=== PATIENT | male | born 1975 | race Caucasian/White ===

== ENCOUNTER 2023-04-06 06:45 | Day surgery (SDC) | payer OTHER, SELFPAY ==
[2023-03-30 12:40] VITALS: BMI 34.5
--- NOTE | 2023-04-05 17:17 | P.PNAN_ITS ---
Anes - Initial Pre Proc Eval Procedure: Operation Date: 04/06/23 08:30 Proposed Procedures p Screening Colonoscopy - Logan Winston MD Date/Time: 04/05/23 17:17 Surgeon: Logan Winston MD Pre Op Diagnosis: Neoplasm Screening, Screen.Neoplasm of Rectum Patient Data Age: 47 Gender: M Height: 1.83 m Weight: 115.5 kg Allergies Allergy/AdvReac Type Severity Reaction Status Date / Time No Known Allergies Allergy Verified 04/06/23 07:00 Home Medications Medication Instructions Recorded Confirmed Type bupropion HCl 150 mg 24 hr tablet, 150 mg PO QAM #90 tabs 02/15/23 04/06/23 Rx extended release lisinopril 20 mg tablet 20 mg PO DAILY #30 tabs 02/15/23 04/06/23 Rx Patient hx anesthesia problems: none Family hx anesthesia problems: none Results Review: All pre-operative results and documents have been reviewed as part of the pre- operative evaluation. [facility] Past Medical History Medical History (Updated 04/05/23 @ 17:17 by Jorge Luis Zamora DO) Generalized anxiety disorder Hypertension KENY (obstructive sleep apnea) Surgical History Surgical History H/O vasectomy 2018 Hx of excision of mass neck 09/21/2018 Family History Family History Father No problems noted. Mother No problems noted. Social History Social History Smoking status: Unknown if ever smoked Tobacco type: cigarettes Alcohol intake: current Drinks per week: 5 Substance use: never Substance use type: does not use Lack of Transportation: No Lack of Food: Never True Current Housing: I Have Housing Concerned About Future Housing: No Difficulty Paying Gas/Electric Bills: No Difficulty Paying for Meds: No Currently Unemployed: No Education: Bachelor's Degree Difficulty w/ Childcare or Family Care: No Living arrangements: with family Occupation/Education: occupation Gender identity (if verbalized by the patient): Male Spiritual care concerns: No Anes - Eval Final PreProcedure Day of Procedure 04/05/23 17:17 Patient weight: obese Heart: regular rate and rhythm Lungs: clear to auscultation Airway: Mallampati scale class II Neurological: alert and oriented Last oral intake: >/= 8 hours ASA classification: III Emergent: no Anesthetic plan: proceed Anesthesia type and monitoring: general GIVS and standard monitoring Results Review: All pre-operative results and documents have been reviewed as part of the pre- operative evaluation. Informed Consent: The patient's anesthetic plan and its attendant risks and benefits were discussed with the patient/family/POA. Questions were solicited and answers provided to the satisfaction of the patient/family/POA.
[2023-04-06 07:10] VITALS: BP 141/102; PULSE 84; RESP 14; TEMP 36.8; O2SAT 98
[2023-04-06 07:12] VITALS: BMI 34.3
[2023-04-06] MEDS: LACTATED RINGERS 1,000 ML 150 ML IV CONT (07:32)
--- NOTE | 2023-04-06 07:35 | SUR.PREOP ---
Anesthesia aware of Pt's BP 141/102, no new orders at this time. HR 84, Pt denies HERRERA, dizziness, blurry vision, chest pain.
--- NOTE | 2023-04-06 08:15 | PM.HPGS ---
History of Present Illness History of Present Illness Consent: Risks, benefits, and alternatives have been discussed and questions answered. Patient agrees to proceed with procedure. Chief complaint: Neoplasm Screening, Screen.Neoplasm of Rectum Narrative: Kyler Harrington is a 47 year old male here for first screening colonoscopy Review of Systems Constitutional: Constitutional: Denies headache(s) and Denies weakness Eyes: Eyes: Denies blurry vision ENT: Reports Normal hearing present, Denies headache(s) and Denies neck pain Cardiovascular: Cardiovascular: Denies chest pain and Denies dyspnea Respiratory: Respiratory: Denies dyspnea Gastrointestinal: Gastrointestinal: Reports no additional gastrointestinal complaints Genitourinary: Genitourinary: Denies dysuria Musculoskeletal: Musculoskeletal: Denies neck pain Integumentary/Breasts: Skin/Breast: Denies dry skin Neurologic: Reports Normal hearing present, Denies headache(s) and Denies weakness Psychiatric: Psychiatric: Denies anxiety Endocrine: Endocrine: Denies change in body appearance Hematologic/Lymphatic: Hematologic/Lymphatic: Denies easy bleeding Allergic/Immunologic: Allergic/Immunologic: Denies urticaria PMFSH Past Medical History Medical History (Updated 04/05/23 @ 17:17 by Jorge Luis Zamora DO) Generalized anxiety disorder Hypertension KENY (obstructive sleep apnea) Surgical History Surgical History H/O vasectomy 2018 Hx of excision of mass neck 09/21/2018 Family History Family History Father No problems noted. Mother No problems noted. Social History Social History Smoking status: Unknown if ever smoked Tobacco type: cigarettes Alcohol intake: current Drinks per week: 5 Substance use: never Substance use type: does not use Lack of Transportation: No Lack of Food: Never True Current Housing: I Have Housing Concerned About Future Housing: No Difficulty Paying Gas/Electric Bills: No Difficulty Paying for Meds: No Currently Unemployed: No Education: Bachelor's Degree Difficulty w/ Childcare or Family Care: No Living arrangements: with family Occupation/Education: occupation Gender identity (if verbalized by the patient): Male Spiritual care concerns: No Meds Home Medications and Allergies Home Medications Medication Instructions Recorded Confirmed Type bupropion HCl 150 mg 24 hr tablet, 150 mg PO QAM #90 tabs 02/15/23 04/06/23 Rx extended release lisinopril 20 mg tablet 20 mg PO DAILY #30 tabs 02/15/23 04/06/23 Rx Allergies Allergy/AdvReac Type Severity Reaction Status Date / Time No Known Allergies Allergy Verified 04/06/23 07:00 Vital Signs Vital Signs - 24 hr 04/06/23 07:10 Temperature 98.2 F Pulse Rate 84 Respiratory Rate 14 Blood Pressure 141/102 H Pulse Oximetry 98 Oxygen Delivery Room Air Exam Const: General: comfortable and no acute distress HENMT: Face/Nose/Sinus: Normal nares present Eyes: General: appearance normal, both eyes and all related structures Neck: Neck: no JVD Resp: Auscultation: clear to auscultation bilaterally Cardio: Rate: regular rate Rhythm: regular rhythm GI: Inspection: non-distended GI Palp: Yes Soft to palpation Skin: General skin exam: normal color Neuro: General: gait normal Speech: normal speech Extrem: General: normal to inspection Psych: Mental Status: mental status grossly normal Assessment and Plan Assessment and plan (1) Screening for colorectal cancer: Code(s): Z12.11 - Encounter for screening for malignant neoplasm of colon; Z12.12 - Encounter for screening for malignant neoplasm of rectum Status: Acute Assessment and Plan: colonoscopy
[2023-04-06 08:31] VITALS: BP 126/90; PULSE 87; RESP 16; O2SAT 98
[2023-04-06 08:41] VITALS: BP 135/92; PULSE 67; RESP 18; O2SAT 100
[2023-04-06 08:51] VITALS: BP 140/97; PULSE 66; RESP 20; O2SAT 100
--- NOTE | 2023-04-06 10:35 | WPDANESPN ---
Anes - Prog Note Post-Op Date/Time: 04/06/23 10:35 Cardiovascular status: normal Respiratory status: normal Airway patency: baseline Mental status: baseline Post-Op hydration status: normal Vital Signs: Last Vital Signs Temp 36.8 C 04/06/23 07:10 Pulse 66 04/06/23 08:51 Resp 20 04/06/23 08:51 BP 140/97 H 04/06/23 08:51 Pulse Ox 100 04/06/23 08:51 O2 Del Method Room Air 04/06/23 08:51 Pain Score (VAS): 0 I/O: Intake & Output 04/05/23 04/06/23 04/06/23 23:59 07:59 15:59 Intake Total 400 Balance 400 Post-procedural complaints: none Patient Feedback: Patient satisfied with anesthetic care. Other Findings: Patient vital signs back to baseline. Patient denies nausea and vomiting. Patient's pain under control. Patient OK for discharge.
== END 2023-04-06 09:02 | disposition home or self-care (01) ==
PROVIDERS: Visit Provider Internal Medicine Gastroenterology
PROC: 0DJD8ZZ Inspection of Lower Intestinal Tract, Via Natural or Artificial Opening Endoscopic (ICD-10-PCS; CPT 45378; principal; 2023-04-06 08:30)
DX: Z12.11 Encounter for screening for malignant neoplasm of colon (principal)
CPT/HCPCS: 45378